=== PATIENT | female | born 1980 | race Caucasian/White ===

== ENCOUNTER 2023-05-25 14:26 | Emergency (ER) | payer MEDICAID ==
[2023-05-25 14:50] VITALS: O2SAT 100
[2023-05-25 15:07] LABS: BASOPHILS % (AUTO) 0.3 %; HCT - HEMATOCRIT 39.2 % (37.0-47.0); HGB - HEMOGLOBIN 12.8 g/dL (12.0-16.0); LYMPHOCYTES # (AUTO) 1.1 10^3/uL (1.5-3.5); MEAN CORPUSCULAR HEMOGLOBIN 29.2 pg (27.0-31.0); MEAN CORPUSCULAR HGB CONC 32.7 g/dL (32.0-36.0); MEAN CORPUSCULAR VOLUME 89.5 fL (81.0-99.0); MEAN PLATELET VOLUME 9.4 fL (7.9-10.8); MONOCYTES # (AUTO) 0.2 10^3/uL (0.0-1.0); MONOCYTES % (AUTO) 7.1 %; NEUTROPHILS # (AUTO) 1.9 10^3/uL (1.5-6.6); NEUTROPHILS % (AUTO) 57.3 %; PLT - PLATELET COUNT 221 10^3/uL (130-450); RED BLOOD COUNT 4.38 10^6/uL (4.20-5.40); RED CELL DISTRIBUTION WIDTH 12.9 % (12.0-15.0); WHITE BLOOD COUNT 3.3 x10^3/uL (4.8-10.8)
[2023-05-25 15:25] LABS: ALBUMIN/GLOBULIN RATIO 1.8 (1.0-2.2); BILIRUBIN,TOTAL 0.2 mg/dL (0.2-1.0); CREATININE 0.6 mg/dL (0.6-1.3); POTASSIUM 3.5 mmol/L (3.5-4.5); TOTAL PROTEIN 6.2 g/dL (6.4-8.9)
[2023-05-25 16:37] LABS: BILIRUBIN,URINE NEGATIVE (NEGATIVE); CLARITY,URINE CLEAR (CLEAR); GLUCOSE, URINE (UA) NEGATIVE (NEGATIVE); KETONES,URINE (UA) NEGATIVE (NEGATIVE); LEUKOCYTE ESTERASE, URINE NEGATIVE (NEGATIVE); NITRITE,URINE NEGATIVE (NEGATIVE); OCCULT BLOOD,URINE TRACE-INTA (NEGATIVE); PROTEIN,URINE NEGATIVE (NEGATIVE); UROBILINOGEN,URINE 0.2 (NORMAL) E.U./dL (NORMAL)
[2023-05-25 16:38] LABS: HCG UR QUAL POSITIVE
--- NOTE | 2023-05-25 16:40 | ED Physician Documentation ---
PD HPI FEMALE - Stated complaint Stated Complaint: CRAMPING/SPOTTING - Chief complaint Chief Complaint: Abd Pain - History obtained from History obtained from: Patient - History of Present Illness Timing - onset: Last night Timing - duration: Days (1/2) Timing - details: Abrupt onset, Still present, Intermittant Associated symptoms: Vaginal bleeding (spotting). No: Fever, Vaginal discharge, Urinary frequency, Hematuria Contributing factors: (11 weeks) OB-[facility] History: G (2), P (1) Similar symptoms before: Has not had sx before (She has not experienced spotting or cramping with previous previous .) Recently seen: Clinic (Seen in [facility], Denise Saha, though the patient will presumably transfer over to high risk maternal- medicine due to history of prior blood clots in .) Review of Systems GI: reports: Abdominal Pain. denies: Vomiting, Diarrhea : reports: Now EGA (11 weeks). denies: Dysuria, Frequency, Discharge PD PAST MEDICAL HISTORY - Past Medical History Past Medical History: Yes Cardiovascular: Deep vein thrombosis, Pulmonary embolism Other Past Medical History: "blood clots" in 2016. - Past Surgical History Past Surgical History: No - Present Medications Home Medications: Ambulatory Orders Medication Instructions Recorded Confirmed No Known Home Medications 05/25/23 05/25/23 - Allergies Allergies/Adverse Reactions: Allergies Allergy/AdvReac Type Severity Reaction Status Date / Time No Known Drug Allergies Allergy Verified 05/25/23 14:41 - Social History Does the pt smoke?: No Smoking Status: Never smoker PD ED PE NORMAL - Vitals Vital signs reviewed: Yes - General General: Alert and oriented X 3, No acute distress, Well developed/nourished - Cardiac Cardiac: RRR, No murmur - Respiratory Respiratory: No respiratory distress, Clear bilaterally - Abdomen Abdomen: Normal bowel sounds, Soft, Non distended, No organomegaly, Other (Mild tender without guarding or percussion tenderness in the suprapubic to left lower abdomen. Not tender in the right lower quadrant no other right upper.) - Female Female : Deferred - Derm Derm: Normal color, Warm and dry Results - Vitals Vitals: Vital Signs - 24 hr 05/25/23 05/25/23 05/25/23 14:37 17:20 18:36 Temperature 36.5 C 36.7 C Heart Rate 99 64 97 Respiratory 16 16 17 Rate Blood Pressure 115/64 128/65 134/82 H O2 Saturation 100 100 100 Oxygen O2 Source Room air - Labs Labs: Laboratory Tests 05/25/23 05/25/23 05/25/23 15:00 15:00 15:00 WBC 3.3 L RBC 4.38 Hgb 12.8 Hct 39.2 MCV 89.5 MCH 29.2 MCHC 32.7 RDW 12.9 Plt Count 221 MPV 9.4 Neut # (Auto) 1.9 Lymph # (Auto) 1.1 L [place] # (Auto) 0.2 Eos # (Auto) 0.0 Baso # (Auto) 0.0 Absolute Nucleated RBC 0.00 Nucleated RBC % 0.0 Sodium 133 L Potassium 3.5 Chloride 99 L Carbon Dioxide 28 Anion Gap 6.0 BUN 9 Creatinine 0.6 Estimated GFR (MDRD) 109 Glucose 116 H Calcium 9.0 Total Bilirubin 0.2 AST 30 ALT 32 Alkaline Phosphatase 33 L Total Protein 6.2 L Albumin 4.0 Globulin 2.2 Albumin/Globulin Ratio 1.8 Lipase 38 Beta HCG, Quant 377670.5 Urine Color Urine Clarity Urine pH Ur Specific [place] Urine Protein Urine Glucose (UA) Urine Ketones Urine Occult Blood Urine Nitrite Urine Bilirubin Urine Urobilinogen Ur Leukocyte Esterase Ur Microscopic Review Urine Culture Comments Urine HCG, Qual Blood Type A POSITIVE 05/25/23 16:30 WBC RBC Hgb Hct MCV MCH MCHC RDW Plt Count MPV Neut # (Auto) Lymph # (Auto) [place] # (Auto) Eos # (Auto) Baso # (Auto) Absolute Nucleated RBC Nucleated RBC % Sodium Potassium Chloride Carbon Dioxide Anion Gap BUN Creatinine Estimated GFR (MDRD) Glucose Calcium Total Bilirubin AST ALT Alkaline Phosphatase Total Protein Albumin Globulin Albumin/Globulin Ratio Lipase Beta HCG, Quant Urine Color YELLOW Urine Clarity CLEAR Urine pH 6.0 Ur Specific [place] <=1.005 Urine Protein NEGATIVE Urine Glucose (UA) NEGATIVE Urine Ketones NEGATIVE Urine Occult Blood TRACE-INTA Urine Nitrite NEGATIVE Urine Bilirubin NEGATIVE Urine Urobilinogen 0.2 (NORMAL) Ur Leukocyte Esterase NEGATIVE Ur Microscopic Review NOT INDICATED Urine Culture Comments NOT INDICATED Urine HCG, Qual POSITIVE Blood Type - Rads (name of study) OB US Relevant Findings:: Prelim report reviewed (living single IUP at 9w6d. Small suchorionic bleed 1.9x1.4 cm. Small ovarian cyst. ) PD Medical Decision Making - ED course Complexity details: considered differential (Onset of cramping and small amount of vaginal bleeding starting last evening and 3 today intermittently. No fevers. Took Tylenol without improvement.), d/w patient ED course: mild vag bleeding in . Vitals are good. Previously established IUP but concern for IUFD or ovarian cyst, torsion, etc so can get US. Departure - Departure Disposition: Home, Self Care Clinical Impression: Threatened Condition: Good Record reviewed to determine appropriate education?: Yes Instructions: ED Miscarriage Poss Follow-Up: Denise Saha CNM, [facility] [Provider Admit Priv/Credential] - Comments: As discussed, the baby is looking okay, you do have a small subchorionic hemorrhage which increases your risk of miscarriage though and bilateral ovarian cysts and a possible fibroid as well. Follow-up with your OB as scheduled. Return for new or worsening symptoms. For your records your blood type is A positive. Forms: PCP List Discharge Date/Time: 05/25/23 18:37
[2023-05-25] MEDS ORDERED: IBUPROFEN 600 MG TABLET PO STA (16:59)
--- NOTE | 2023-05-25 18:30 | ED Physician Documentation ---
ED Addendum - Addendum Addendum: 05/25/23 18:[address] Motta at 6 PM shift change pending ultrasonography. Blood type is a positive, unremarkable blood work with beta-hCG of 151,000. Per report from [facility] reassuring ultrasound with positive intrauterine and heart rate. She does have bilateral left greater than right ovarian cyst and a fibroid and a small subchorionic hemorrhage and these were discussed with the patient. Disposition: Discharged home Condition: Stable Diagnosis: 1. Threatened
[2023-05-25 18:46] VITALS: BP 134/82
--- NOTE | 2023-05-25 19:22 | Ultrasound Report ---
PROCEDURE: OB First Trimester INDICATIONS: lower abd cramping/spotting; 11 wks. OUTSIDE/PRIOR DATING DATA: Last menstrual period (LMP): Unknown. First dating scan (date and location): Today. Estimated date of delivery (LILLY) from first dating scan: 12/22/2023. TECHNIQUE: Real-time scanning was performed of the fetus and maternal pelvic organs, with image documentation. COMPARISON: None. FINDINGS: Intrauterine gestation is present. Heart rate 173 bpm. Mean gestational sac diameter is 4. 3 cm. [place]-rump length is 2.96 cm. Ultrasound age of 9 weeks 6 days. Yolk sac is present. Subchorionic bleed, small, measures 1.9 x 1.4 cm. There are bilateral small ovarian cysts/follicles. Possible small uterine fibroid measuring 2.2 cm. IMPRESSION: Living intrauterine gestation at an ultrasound age of 9 weeks and 6 days. Reviewed by: Dylan Simpson MD on 05/25/2023 7:21 PM PST Approved by: Dylan Simpson MD on 05/25/2023 7:21 PM PST Station ID: [id number]
== END 2023-05-25 18:37 | disposition home or self-care (01) ==
LOC: ED 14:26
DX: O20.0 Threatened abortion (principal); Z3A.09 9 weeks gestation of pregnancy
CPT/HCPCS: 36415; 76801; 80053; 81003; 81025; 83690; 84702; 85025; 86900; 86901; 99283; A9270; 81001; 87086

== ENCOUNTER 2023-12-29 17:00 | Emergency (ER) | payer MEDICAID ==
[2023-12-29 17:39] LABS: BASOPHILS # (AUTO) 0.1 10^3/uL (0.0-0.1); BASOPHILS % (AUTO) 0.4 %; EOSINOPHILS # (AUTO) 0.2 10^3/uL (0.0-0.7); EOSINOPHILS % (AUTO) 1.6 %; HCT - HEMATOCRIT 43.2 % (37.0-47.0); HGB - HEMOGLOBIN 14.1 g/dL (12.0-16.0); LYMPHOCYTES # (AUTO) 2.3 10^3/uL (1.5-3.5); LYMPHOCYTES % (AUTO) 15.7 %; MEAN CORPUSCULAR HEMOGLOBIN 29.2 pg (27.0-31.0); MEAN CORPUSCULAR HGB CONC 32.6 g/dL (32.0-36.0); MEAN CORPUSCULAR VOLUME 89.4 fL (81.0-99.0); MEAN PLATELET VOLUME 9.7 fL (7.9-10.8); MONOCYTES # (AUTO) 0.5 10^3/uL (0.0-1.0); MONOCYTES % (AUTO) 3.5 %; NEUTROPHILS # (AUTO) 11.3 10^3/uL (1.5-6.6); NEUTROPHILS % (AUTO) 78.5 %; PLT - PLATELET COUNT 353 10^3/uL (130-450); RED BLOOD COUNT 4.83 10^6/uL (4.20-5.40); RED CELL DISTRIBUTION WIDTH 12.5 % (12.0-15.0); WHITE BLOOD COUNT 14.4 x10^3/uL (4.8-10.8)
[2023-12-29 17:58] LABS: ALBUMIN 4.4 g/dL (3.2-5.5); ALBUMIN/GLOBULIN RATIO 1.7 (1.0-2.2); BILIRUBIN,TOTAL 0.4 mg/dL (0.2-1.0); CALCIUM 9.8 mg/dL (8.5-10.3); CREATININE 0.8 mg/dL (0.6-1.3); POTASSIUM 3.6 mmol/L (3.5-4.5)
[2023-12-29 18:58] VITALS: BP 122/74; O2SAT 99
[2023-12-29 19:06] LABS: BILIRUBIN,URINE NEGATIVE (NEGATIVE); GLUCOSE, URINE (UA) NEGATIVE (NEGATIVE); KETONES,URINE (UA) TRACE mg/dL (NEGATIVE); LEUKOCYTE ESTERASE, URINE NEGATIVE (NEGATIVE); NITRITE,URINE NEGATIVE (NEGATIVE); OCCULT BLOOD,URINE NEGATIVE (NEGATIVE); PROTEIN,URINE NEGATIVE (NEGATIVE); UROBILINOGEN,URINE 0.2 (NORMAL) E.U./dL (NORMAL)
[2023-12-29 19:12] LABS: CLARITY,URINE CLEAR (CLEAR); HCG UR QUAL NEGATIVE
--- NOTE | 2023-12-29 19:25 | ED Physician Documentation ---
PD HPI ABD PAIN - Stated complaint Stated Complaint: ABD PX - Chief complaint Chief Complaint: Abd Pain - History obtained from History obtained from: Patient - Additional information Additional information: This is a very nice 43-year-old female who presented with epigastric pain. Patient has had some issues with GERD recently for many months but able to generally manage with lifestyle changesSuch as cutting out sugar. Today she had an episode that was more severe than typical, it is between her umbilicus and the epigastric region. It is very localized, does not radiate and it was burning sharp in sensation. She tried [id number] acid reducers including Tums without relief in her symptoms and a thus presented to the ER. She now feels substantially better, and is not in pain any longer. She states she does recall having a ibuprofen earlier today and wonders if that may have triggered her symptoms. She does not drink alcohol, does not routinely take NSAIDs maybe once or twice a month but took 1 today due to headache, and he generally eats quite healthy, has cut out sugar, and does not eat spicy or high-fat foods. She states no vomiting, no fever or chills, no diarrhea or constipation. She states she is feeling well at this time and now stating that she does not feel like she needs to be here. Review of Systems Constitutional: reports: Reviewed and negative Eyes: reports: Reviewed and negative Ears: reports: Reviewed and negative Nose: reports: Reviewed and negative Throat: reports: Reviewed and negative Cardiac: reports: Reviewed and negative Respiratory: reports: Reviewed and negative GI: reports: Abdominal Pain : reports: Reviewed and negative Skin: reports: Reviewed and negative Musculoskeletal: reports: Reviewed and negative Neurologic: reports: Reviewed and negative Psychiatric: reports: Reviewed and negative Endocrine: reports: Reviewed and negative PD PAST MEDICAL HISTORY - Past Medical History Past Medical History: Yes Cardiovascular: Deep vein thrombosis, Pulmonary embolism - Past Surgical History Past Surgical History: No - Present Medications Home Medications: Ambulatory Orders Medication Instructions Recorded Confirmed Omeprazole 40 mg PO DAILY #15 cap 12/29/23 - Allergies Allergies/Adverse Reactions: Allergies Allergy/AdvReac Type Severity Reaction Status Date / Time No Known Drug Allergies Allergy Verified 12/29/23 17:26 - Social History Does the pt smoke?: No Smoking Status: Never smoker PD ED PE NORMAL - Vitals Vital signs reviewed: Yes - General General: Alert and oriented X 3, No acute distress, Well developed/nourished - HEENT HEENT: Atraumatic, Moist mucous membranes - Neck Neck: Supple, no meningeal sign, No JVD - Cardiac Cardiac: RRR, No murmur - Respiratory Respiratory: No respiratory distress, Clear bilaterally - Abdomen Abdomen: Normal bowel sounds, Soft, Non distended, Other (Very mild tenderness just above the umbilicus, no guarding. No right upper quadrant tenderness or other areas of focal tenderness.) Results - Vitals Vitals: Vital Signs - 24 hr 12/29/23 12/29/23 12/29/23 17:20 17:26 17:28 Temperature 36.5 C Heart Rate 68 68 Respiratory 16 16 16 Rate Blood Pressure 117/73 122/74 O2 Saturation 100 99 12/29/23 19:40 Temperature Heart Rate Respiratory 16 Rate Blood Pressure O2 Saturation Oxygen O2 Source Room air - Labs Labs: Laboratory Tests 12/29/23 12/29/23 12/29/23 17:35 17:35 18:30 WBC 14.4 H RBC 4.83 Hgb 14.1 Hct 43.2 MCV 89.4 MCH 29.2 MCHC 32.6 RDW 12.5 Plt Count 353 MPV 9.7 Neut # (Auto) 11.3 H Lymph # (Auto) 2.3 [place] # (Auto) 0.5 Eos # (Auto) 0.2 Baso # (Auto) 0.1 Absolute Nucleated RBC 0.00 Nucleated RBC % 0.0 Sodium 138 Potassium 3.6 Chloride 102 Carbon Dioxide 30 Anion Gap 6.0 BUN 15 Creatinine 0.8 Estimated GFR (MDRD) 78 L Glucose 130 H Calcium 9.8 Total Bilirubin 0.4 AST 17 ALT 20 Alkaline Phosphatase 40 L Total Protein 7.0 Albumin 4.4 Globulin 2.6 Albumin/Globulin Ratio 1.7 Lipase 21 Urine Color YELLOW Urine Clarity CLEAR Urine pH 7.0 Ur Specific [place] 1.025 Urine Protein NEGATIVE Urine Glucose (UA) NEGATIVE Urine Ketones TRACE Urine Occult Blood NEGATIVE Urine Nitrite NEGATIVE Urine Bilirubin NEGATIVE Urine Urobilinogen 0.2 (NORMAL) Ur Leukocyte Esterase NEGATIVE Ur Microscopic Review NOT INDICATED Urine Culture Comments NOT INDICATED Urine HCG, Qual NEGATIVE PD Medical Decision Making - ED course Complexity details: reviewed results, re-evaluated patient, considered differential, d/w patient, d/w family ED course: 43-year-old female presented with epigastric pain as described in HPI. Symptoms have been present for the last several months but substantially worse today cau sing patient to be concerned. She took a number of different medications prior to arrival and actually her pain has subsided since she arrived here. She currently has minimal pain, none at rest but mild to pain just above the umbilicus with palpation. No other areas of pain. I suspect this is GERD though may have a gastric ulcer, low suspicion for pancreatitis as patient did not have any vomiting pain improved. Her she has no right upper quadrant pain to suggest cholecystitis or choledocholithiasis. Pain is very localized and reproducible making ACS less likely. Patient's labs are reviewed and generally stable her white count Metimyd 14.4 but otherwise stable, stable CMP normal lipase urinalysis. The patient is feeling substantially better, she does not feel like she needs any additional workup at this time. I would agree and recommended starting on a PPI and following up with PCP possible GI referral for endoscopy. I did not however offer a CT scan if the patient desired given the degree of her pain earlier but she has declined. I discussed supportive measures for GERD type symptoms as well as return precautions and patient was discharged home in stable condition. Departure - Departure Disposition: 01 Home, Self Care Clinical Impression: Gastroesophageal reflux disease Qualifiers: Esophagitis presence: without esophagitis Qualified Code(s): K21.9 - Gastro- esophageal reflux disease without esophagitis Condition: Good Instructions: ED GERD Prescriptions: Omeprazole 40 mg PO DAILY #15 cap Comments: Please follow-up with your primary doctor and You will likely need a referral to GI for an endoscopy. In the meantime, We will start you on an acid wheel cleaner and continue to make the lifestyle and dietary changes that you have been working on. Avoid any NSAIDs that is like naproxen ibuprofen Advil or similar, and avoid any spicy or high-fat foods that could exacerbate your symptoms. If this recurs, and it does not resolve with medication, return to the emergency department. Medication sent to [facility] in [place]. Forms: PCP List Discharge Date/Time: 12/29/23 19:41
== END 2023-12-29 19:41 | disposition home or self-care (01) ==
LOC: ED 17:00
DX: K21.9 Gastro-esophageal reflux disease without esophagitis (principal)
CPT/HCPCS: 36415; 80053; 81001; 81003; 81025; 83690; 85025; 87086; 99283; 99284